=== PATIENT | male | born 1965 | race Caucasian/White ===

== ENCOUNTER 2017-07-18 07:39 | Emergency (ER) | payer SELFPAY ==
[2017-07-18 07:47] VITALS: BMI 29.0
[2017-07-18] MEDS ORDERED: Sodium Chloride 0.9% 500 ML IV STA ×2 (08:03→10:51)
[2017-07-18] MEDS ORDERED: Morphine 4 mg/ml ISec IVP STA (08:03)
--- NOTE | 2017-07-18 08:13 | ED PDOC ---
Arrival/HPI - General Chief Complaint: Trauma Time Seen by Provider: 07/18/17 08:03 Historian: Patient - History of Present Illness Narrative History of Present Illness (Text): 07/18/17 08:00 Henry Pope is a 52 year old male, whose past medical history includes hypertension and diabetes, who presents to the emergency department complaining of left sided mid-back pain radiating to left side of the abdomen s/p mechanical fall. Patient reports last night he had a mechanical fall down the stairs (1flight of stairs tripping over his dog) landing on his left side. He notes being able to get up slowly and ambulate with no problem. Patient decided to take two Aleves, which did not have significant relief. Patient woke up this morning and could barely move without pain. He also states pain is worse with deep breathing. Patient denies chest pain, shortness of breath, dizziness, lightheadedness, or palpitation. Patient did not hit his head. pt denied syncope pre/post fall; Patient denies any loss of consciousness, headache, fever , chills, cough, nausea, vomiting, diarrhea, visual changes, neck pain, dysuria , hematuria, frequency, bowel/bladder incontinence; pt denied numbness/tingling ; Patient denies other bodily pain or injury. Additionally, patient reports having his last Tetanus shot more than 5 years ago. PMD: Dr. Husain 07/18/17 08:52 pt arrived to ED for further eval; pt denied other complaints. Time/Duration: 4-6 hours Symptom Onset: Sudden Symptom Course: Worsening Severity Level: Severe Activities at Onset: Rest, Light Context: Home, Tripped Past Medical History - Provider Review Nursing Documentation Reviewed: Yes - Travel History Have you recently traveled outside [place] w/in the past 3 mons?: No - Past History Past History: No Previous - Infectious Disease Hx of Infectious Diseases: None - Tetanus Immunization Tetanus Immunization: Unknown - Cardiac Hx Cardiac Disorders: Yes Hx Hypertension: Yes - Pulmonary Hx Respiratory Disorders: Yes Hx Asthma: Yes - Neurological Hx Neurological Disorder: No - HEENT Hx HEENT Disorder: No - Renal Hx Renal Disorder: No - Endocrine/Metabolic Hx Endocrine Disorders: Yes Hx Diabetes Mellitus Type 2: Yes - Hematological/Oncological Hx Blood Disorders: No - Integumentary Hx Dermatological Disorder: No - Musculoskeletal/Rheumatological Hx Musculoskeletal Disorders: No Hx Falls: No - Gastrointestinal Hx Gastrointestinal Disorders: Yes Hx Gastroesophageal Reflux: Yes - Genitourinary/Gynecological Hx Genitourinary Disorders: No - Psychiatric Hx Psychophysiologic Disorder: Yes Hx Depression: Yes Hx Substance Use: No - Past Surgical History Past Surgical History: Non-Contributing - Surgical History Hx Appendectomy: Yes - Anesthesia Hx Anesthesia: Yes Hx Anesthesia Reactions: No Hx Malignant Hyperthermia: No - Suicidal Assessment Feels Threatened In Home Enviroment: No Family/Social History - Physician Review Nursing Documentation Reviewed: Yes Family/Social History: Unknown Family HX Smoking Status: Current Some Days Smoker Hx Alcohol Use: Yes Hx Substance Use: No Hx Substance Use Treatment: No Allergies/Home Meds Allergies/Adverse Reactions: Allergies latex Allergy (Verified 03/18/16 09:14) RASH Review of Systems - Review of Systems Constitutional: absent: Fevers Eyes: absent: Vision Changes Respiratory: absent: SOB Cardiovascular: absent: Chest Pain Gastrointestinal: Abdominal Pain (left sided ). absent: Diarrhea, Vomiting Genitourinary Male: absent: Dysuria, Frequency, Hematuria Musculoskeletal: Back Pain (left sided mid back pain ) Neurological: absent: Headache, Dizziness, Focal Weakness Endocrine: absent: Polyuria Hemo/Lymphatic: absent: Easy Bleeding, Easy Bruising Physical Exam Vital Signs Reviewed: Yes Temperature: Afebrile Blood Pressure: Normal Pulse: Regular Respiratory Rate: Normal Appearance: Positive for: Well-Appearing, Non-Toxic, Other (uncomfortable, sitting on his exam bed, intermittently screaming of pain, mild-moderate distress; cooperative, alert/awake) Pain Distress: Mild Mental Status: Positive for: Alert and Oriented X 3 - Systems Exam Head: Present: Atraumatic, Normocephalic Pupils: Present: PERRL, Other (no photophobia, sclera anicteric, no nystagmus, visual field intact b/l) Extroacular Muscles: Present: EOMI Conjunctiva: Present: Normal Ears: Present: Normal Mouth: Present: Moist Mucous Membranes, Other (intact dentitions, no drooling/ stridor, no dysphonia) Pharnyx: Present: Normal Nose (External): Present: Atraumatic Neck: Present: Normal Range of Motion, Trachea Midline, Other (no step off, intact ROM, no midline tenderness). No: MIDLINE TENDERNESS, Paraspinal Tenderness Respiratory/Chest: Present: Clear to Auscultation, Good Air Exchange, Other (+ left lateral/lower chest wall tenderness noted, no crepitus on exam, no rashes/ lesions noted). No: Respiratory Distress, Accessory Muscle Use, Wheezes, Rales , Retracting, Rhonchi Cardiovascular: Present: Regular Rate and Rhythm, Normal S1, S2. No: Murmurs Abdomen: Present: Normal Bowel Sounds, Other (well nourished/obese male, + mild left upper/mid abd tenderness, no organomeagly noted; no masses/rebound/guarding /rigidity; no roa's sign, no mcburney's point tenderness). No: Tenderness, Distention, Peritoneal Signs, Rebound, Guarding Back: Present: Normal Inspection, Midline Tenderness (lower mid-thoracic midline tenderness), Other (no ecchymosis/lesions noted; + lower thoracic/upper lumbar midline tenderness, no step off, no paralumbar tenderness noted on exam) . No: CVA Tenderness, Pain with Leg Raise Upper Extremity: Present: Normal Inspection, Normal ROM, NORMAL PULSES, Neurovascularly Intact, Capillary Refill < 2s. No: Cyanosis, Edema, Tenderness , Swelling, Erythema, Deformity Lower Extremity: Present: Normal Inspection, NORMAL PULSES, Normal ROM, Neurovascularly Intact, Capillary Refill < 2 s, Other (strength 5/5 grossly intact in all limbs, +2/2 reflex b/l). No: Edema, CALF TENDERNESS, Cyanosis, Tenderness, Swelling, Erythema, Deformity Neurological: Present: GCS=15, CN II-XII Intact, Speech Normal Skin: Present: Warm, Dry, Normal Color, Abrasion (2 abrasions noted: 1) 1/3 proximally located on the anterior of left leg; 2) upper 1/3 proximally small abrasions on right lower leg). No: Rashes Lymphatic: Present: Other (no ecchymosis) Psychiatric: Present: Alert, Oriented x 3, Normal Insight, Normal Concentration Medical Decision Making ED Course and Treatment: 07/18/17 Impression: 52 year old male with lower mid thoracic midline tenderness. Patient has 2 abrasions anterior left/right leg. No ecchymosis noted. I have considered all Differential Diagnosis regarding pt's chief medical complaints/clinical findings included but are not limited to: r/o rib fracture vs. pneumothorax vs. abdominal wall contusion vs. spinal fracture. pt unlikely sustained intrabdominal solid organ injury, however will continue to monitor. 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[employer] and doesnt want to stay in the hospital if it was recommended with negative CT results, and pt's remained able to ambulate, pt is currently stable/comfortable, pt can be discharged home with outpt f/u pt is made aware of his medical results/diagnosis pt is encouraged IS use as directed pt is encouraged not to drink alcohol pt will f/u as directed pt will be discharged home 07/18/17 12:05 Re-evaluation Time: 11:35 Reassessment Condition: Improving,but remains with symptoms - Lab Interpretations Lab Results: 07/18/17 07:55 07/18/17 07:55 Lab Results 07/18/17 07:55: Sodium 140, Potassium 4.5, Chloride 102, Carbon Dioxide 21, Anion Gap 21 H, BUN 21, Creatinine 0.9, Est GFR ( Amer) > 60, Est GFR ( Non-Af Amer) > 60, Random Glucose 182 H, Calcium 9.6, Total Bilirubin 0.6, AST 56, ALT 76 H, Alkaline Phosphatase 80, Total Creatine Kinase 789 H, CK-MB (CK-2 ) 9.4 H, CK-MB (CK-2) % 1.2 L, Total Protein 8.8 H, Albumin 5.0 H, Globulin 3.8 , Albumin/Globulin Ratio 1.3, Lipase 97 07/18/17 07:55: WBC 10.8 D, RBC 4.82, Hgb 14.9, Hct 43.8, MCV 90.9, MCH 30.9, MCHC 34.0, RDW 12.8, Plt Count 244, MPV 11.1 H, Gran % 75.0 H, Lymph % (Auto) 17.8 L, [place] % (Auto) 5.4, Eos % (Auto) 1.5, Baso % (Auto) 0.3, Gran # 8.07 H, Lymph # 1.9, [place] # 0.6, Eos # 0.2, Baso # 0.03 I have reviewed the lab results: Yes (elevated CK/LFTs) Interpretation: Abnormal lab values - RAD Interpretation Narrative RAD Interpretations (Text): 07/18/17 10:15 Hip and pelvis impression: no fracture, dislocation, or foreign bodies noted on scan, read by me. Left ribs x-ray impression: left basilar atelectasis. No active disease noted in chest. No pneumothorax. Questionable 9 and 10 rib fracture on displaced and no free air. Read by me. Thoracolumbar spine x-ray impression: concerning findings of T10, T11, T12 compression. Vertebral heigh chnage. Concern for acute compression fracture. Read by me. 07/18/17 10:30 Hip/Pelvis x-ray: Creator : Mary Quinonez MD FINDINGS: BONES: There is a linear lucency in the right femoral head with mild medial angulation. The pelvic ring is intact. Bone alignment and mineralization are normal. JOINTS: Normal. SOFT TISSUES: Normal. OTHER FINDINGS: None. IMPRESSION: Findings are concerning for acute nondisplaced fracture in the right femoral head. No dislocation. 07/18/17 10:35 Left rib x-ray: Creator : Mary Quinonez MD COMPARISON: 05/31/2015. FINDINGS: LEFT RIBS: There is an acute mildly displaced fracture in the left posterior tenth ribs and question of acute nondisplaced fracture in the left posterior 11th rib. LUNGS: The lungs are well inflated. There is linear atelectasis in the left lower lobe. No consolidation. PLEURA: No pneumothorax or pleural fluid. CARDIOVASCULAR: Normal sized heart. No pulmonary vascular congestion. OTHER FINDINGS: None. IMPRESSION: 1. Acute mildly displaced fracture in the left posterior 10th rib and question of acute nondisplaced fracture in the left posterior 11th rib. No pleural effusion or pneumothorax the 07/18/17 10:40 Spine x-ray: Creator : Mary Quinonez MD FINDINGS: BONES: There is normal alignment of the thoracic and lumbar vertebral bodies. There is normal thoracic kyphosis and lumbar lordosis. Bone mineralization is normal. There is question of superior endplate compression deformities in the T11 and T12 vertebral bodies. There is no evidence of retropulsion. DISC SPACES: There is multilevel degenerative disc disease in the lower thoracic spine and at L4-5 and L5-S1. OTHER FINDINGS: There are no pathologic soft tissue calcifications. Both sacroiliac joints are normal. IMPRESSION: Suspect superior endplate compression deformities in the T11 and T12 vertebral bodies. No retropulsion. Radiology Orders: 07/18/17 08:05 HIP MIN 2V W/ PELVIS RT [RAD] Stat RIBS LEFT & PA CHEST [RAD] Stat 07/18/17 08:07 SPINE THORACOLUMBAR MIN 2 VIEW [RAD] Stat 07/18/17 10:15 THORACIC SPINE W/O CONT [CT] Stat 07/18/17 10:16 LUMBAR SPINE W/O CONTRAST [CT] Stat 07/18/17 10:50 PELVIS W/O PO OR IV CONTRAST [CT] Stat CT pelvis: PROCEDURE: CT of the pelvis without contrast. HISTORY: r/o hip fracture COMPARISON: Plain radiographs performed earlier the same day TECHNIQUE: Contiguous axial images of pelvis were obtained. Coronal and sagittal reformats were generated. This CT exam was performed using one or more of the following dose reduction techniques: Automated exposure control, adjustment of the mA and/or kV according to patient size, and/or use of iterative reconstruction technique. Total exam DLP = 1016.56 mGy-cm. FINDINGS: BONES: There is no acute displaced fracture or bone destruction. Bone alignment and mineralization are normal. RIGHT HIP JOINT: There is moderate degenerative osteoarthrosis in the right hip joint with reduced joint space, marginal osteophytes and subarticular cystic changes. The left hip joint space is preserved. SOFT TISSUES: The periarticular soft tissues are normal. There is a small fat containing infraumbilical ventral hernia. Mild sigmoid diverticulosis without CT evidence for acute diverticulitis. IMPRESSION: 1. No acute displaced fracture or dislocation. 2. Moderate degenerative osteoarthrosis in the right hip joint with subarticular cystic changes, reduced joint space and marginal osteophytes. CT L/S: FINDINGS: VERTEBRAE: There is normal alignment of the lumbar vertebral bodies. There is normal lumbar lordosis. There is no acute fracture, spondylolysis or spondylolisthesis. Bone mineralization is normal. DISCS/SPINAL CANAL/NEURAL FORAMINA: There are multilevel Schmorl's nodes in the lower thoracic vertebral bodies. L1-2: No large disc herniation, neural foraminal or spinal canal stenosis. L2-3: Mild posterior disc bulge without neural foraminal or spinal canal stenosis. L3-4: Mild posterior disc bulge and right foraminal disc protrusion without spinal canal stenosis. Mild facet arthropathy contributes to moderate right and mild left neural foraminal stenosis. L4-5: Broad-based central disc protrusion indents the ventral thecal sac with resultant moderate spinal canal stenosis. Also noted is superimposed right foraminal disc protrusion. Mild bilateral facet arthropathy contributes to severe right and moderate left neural foraminal stenosis. L5-S1: Diffuse posterior disc bulge without spinal canal stenosis. Mild bilateral facet arthropathy contributes to [id number] neural foraminal stenosis. PARASPINAL SOFT TISSUES: Unremarkable. OTHER FINDINGS: None. IMPRESSION: 1. No acute fracture, spondylolysis or spondylolisthesis. 2. Multilevel degenerative disc disease, worse at L4-5 with a broad-based central and right foraminal disc protrusions and mild facet arthropathy with resultant moderate spinal canal stenosis, severe right and moderate left neural foraminal stenosis. CT thoracic: PROCEDURE: CT Thoracic Spine without contrast HISTORY: fall, persistent back pain COMPARISON: None. TECHNIQUE: Axial computed tomography images were obtained of the thoracic spine without intravenous contrast. Coronal and sagittal reformatted images were created and reviewed. Radiation dose: Total exam DLP = 1117.79 mGy-cm. This CT exam was performed using one or more of the following dose reduction techniques: Automated exposure control, adjustment of the mA and/or kV according to patient size, and/or use of iterative reconstruction technique. FINDINGS: VERTEBRAE: There is normal alignment of the thoracic vertebral bodies. There is normal thoracic kyphosis. There is no acute fracture or bone destruction. There is no spondylolisthesis. DISCS/SPINAL CANAL/NEURAL FORAMINA: There are multilevel Schmorl's nodes in the lower thoracic vertebral bodies. There is mild multilevel degenerative disc disease without spinal canal stenosis. Evaluation of the discs and spinal cord is limited on noncontrast CT examination. PARASPINAL SOFT TISSUES: Unremarkable. OTHER FINDINGS: Incidental note is made of a solitary gallstone. IMPRESSION: No acute fracture. Cloth Laminating Supervisor: ED Physician, Radiologist - Medication Orders Current Medication Orders: Discontinued Medications Diazepam (Valium) 5 mg PO STAT STA Stop: 07/18/17 08:18 Last Admin: 07/18/17 08:23 Dose: 5 mg Sodium Chloride (Sodium Chloride 0.9%) 500 mls @ 1,000 mls/hr IV .Q30M STA Stop: 07/18/17 08:32 Last Admin: 07/18/17 08:05 Dose: 1,000 mls/hr eMAR Start Stop Document 07/18/17 08:05 TA (Rec: 07/18/17 10:38 TA [id number]) Intravenous Solution Start Date 07/18/17 Start Time 08:05 Sodium Chloride (Sodium Chloride 0.9%) 500 mls @ 999 mls/hr IV .Q31M STA Stop: 07/18/17 11:21 Last Admin: 07/18/17 11:05 Dose: 999 mls/hr eMAR Start Stop Document 07/18/17 11:05 TA (Rec: 07/18/17 11:30 TA [id number]) Intravenous Solution Start Date 07/18/17 Start Time 11:05 Ketorolac Tromethamine (Toradol) 30 mg IVP STAT STA Stop: 07/18/17 08:09 Last Admin: 07/18/17 08:23 Dose: 30 mg MAR Pain Assessment Document 07/18/17 08:23 TA (Rec: 07/18/17 08:23 TA [id number]) Pain Reassessment Is this a pain reassessment? No Sleep Is patient sleeping during reassessment? No Pain Scale Used Pain Scale Used Numeric Location Left, Right or Bilateral Left Pain Location Body Site Generalized Description Description Constant Intensity of Pain at present 10 Acceptable Level of Pain 0 Pain Behavior Moaning IVP Administration Document 07/18/17 08:23 TA (Rec: 07/18/17 08:23 TA [id number]) Charges for Administration # of IVP Administrations 1 Morphine Sulfate (Morphine) 4 mg IVP STAT STA Stop: 07/18/17 08:04 Last Admin: 07/18/17 08:22 Dose: 4 mg MAR Pain Assessment Document 07/18/17 08:22 TA (Rec: 07/18/17 08:23 TA [id number]) Pain Reassessment Is this a pain reassessment? No Sleep Is patient sleeping during reassessment? No Presence of Pain Presence of Pain No Pain Scale Used Pain Scale Used Numeric Location Left, Right or Bilateral Left Pain Location Body Site Generalized Description Description Constant Intensity of Pain at present 10 Acceptable Level of Pain 0 Pain Behavior Moaning IVP Administration Document 07/18/17 08:22 TA (Rec: 07/18/17 08:23 TA [id number]) Charges for Administration # of IVP Administrations 1 Morphine Sulfate (Morphine) 6 mg IVP STAT STA Stop: 07/18/17 10:11 Last Admin: 07/18/17 10:37 Dose: 6 mg MAR Pain Assessment Document 07/18/17 10:37 TA (Rec: 07/18/17 10:38 TA [id number]) Pain Reassessment Is this a pain reassessment? Yes Sleep Is patient sleeping during reassessment? No Presence of Pain Presence of Pain Yes Pain Scale Used Pain Scale Used Numeric Location Left, Right or Bilateral Left Pain Location Body Site Generalized Description Description Constant Intensity of Pain at present 5 Acceptable Level of Pain 0 Pain Behavior Moaning IVP Administration Document 07/18/17 10:37 TA (Rec: 07/18/17 10:38 TA [id number]) Charges for Administration # of IVP Administrations 1 Tetanus/Reduced Diphtheria/Acell Pertussis (Boostrix Vaccine Inj) 0.5 ml IM .ONCE ONE Stop: 07/18/17 08:41 Last Admin: 07/18/17 10:12 Dose: 0.5 ml MAR Immunization Data Document 07/18/17 10:12 TA (Rec: 07/18/17 10:12 TA [id number]) Immunization Data Vaccine Information Sheet Given Yes Immunization Registry Document 07/18/17 10:12 TA (Rec: 07/18/17 10:12 TA [id number]) Immunization Registry Consent Date 07/18/17 - Scribe Statement The provider has reviewed the documentation as recorded by the Nilo Curran Provider Scribe Attestation: All medical record entries made by the Scribe were at my direction and personally dictated by me. I have reviewed the chart and agree that the record accurately reflects my personal performance of the history, physical exam, medical decision making, and the department course for this patient. I have also personally directed, reviewed, and agree with the discharge instructions and disposition. Disposition/Present on Arrival - Present on Arrival Any Indicators Present on Arrival: No History of DVT/PE: No History of Uncontrolled Diabetes: Yes Urinary Catheter: No History of Decub. Ulcer: No History Surgical Site Infection Following: None - Disposition Have Diagnosis and Disposition been Completed?: Yes Diagnosis: Closed rib fracture, Unspecified thoracic, thoracolumbar and lumbosacral intervertebral disc disorder, Back contusion Diagnosis: (Ruled Out): Contusion of thoracic wall Disposition: HOME/ ROUTINE Disposition Time: 11:57 Patient Plan: Discharge Patient Problems: Current Active Problems Problem Status Onset Back contusion Acute Closed rib fracture Acute Unspecified thoracic, thoracolumbar and lumbosacral intervertebral disc disorder Acute Condition: STABLE Discharge Instructions (ExitCare): Rib Fracture (ED), Acute Low Back Pain (ED) , Contusion in Adults (ED), Fall Prevention (ED) Print Language: [place] Additional Instructions: Make sure to see your doctor in 1-2 days DRINK PLENTY OF FLUIDS take your medications as prescribed DONT DRINK ALCOHOL USE THE Incentive spirometer as directed RETURN TO ED IF worse pain, cant breath, persistent vomiting, high fever >101- 102 for hours, altered behavior, unable to urinate, heavy/persistent bleeding, passing out, chest pain, or other medical emergencies Prescriptions: diaZEpam [Valium] 5 mg PO TID #15 tab Ibuprofen [Motrin] 600 mg PO TID #30 tab oxyCODONE/Acetaminophen [Percocet 5/325 mg Tab] 1 tab PO QID #15 tab Referrals: Doroteo Pope MD [Staff Provider] - Follow up with primary PCP,NO [Family Provider] - Follow up with primary Forms: [employer] ([place])
[2017-07-18 08:37] LABS: BASO # 0.03 K/mm3 (0.0-2.0); BASO % 0.3 % (0.0-3.0); EOS # 0.2 (0.0-0.7); EOS % 1.5 % (1.5-5.0); GRAN # 8.07 (1.4-6.5); HEMATOCRIT 43.8 % (42.0-52.0); LYMPH # 1.9 (1.2-3.4); LYMPH % 17.8 % (22.0-35.0); MEAN CELL VOLUME 90.9 fl (80.0-105.0); MEAN CORPUSCULAR HEMOGLOBIN 30.9 pg (25.0-35.0); MEAN PLATELET VOLUME 11.1 fl (7.0-11.0); MONO # 0.6 (0.1-0.6); MONO % 5.4 % (1.0-6.0); RED CELL DISTRIBUTION WIDTH 12.8 % (11.5-14.5); WHITE BLOOD COUNT 10.8 10^3/ul (4.5-11.0)
[2017-07-18] MEDS ORDERED: TDAP Vaccine 0.5 mL Syr IM ONE (08:40)
[2017-07-18 08:57] LABS: ALB/GLOB RATIO 1.3 (1.1-1.8); ALKALINE PHOSPHATASE 80 U/L (38-126); ALT/SGPT 76 U/L (7-56); AST/SGOT 56 U/L (17-59); BILIRUBIN,TOTAL 0.6 mg/dL (0.2-1.3); BLOOD UREA NITROGEN 21 mg/dL (7-21); CALCIUM 9.6 mg/dL (8.4-10.5); CARBON DIOXIDE 21 mmol/L (21-33); CHLORIDE 102 mmol/L (98-107); GFR AFRICAN-AMERICAN > 60; GLUCOSE,RANDOM 182 mg/dL (70-110); LIPASE 97 U/L (23-300); POTASSIUM 4.5 mmol/L (3.6-5.0); SODIUM 140 mmol/L (132-148); TOTAL PROTEIN 8.8 g/dL (5.8-8.3)
[2017-07-18] MEDS ORDERED: Morphine 2 mg/ml ISec IVP STA (10:10)
--- NOTE | 2017-07-18 10:27 | RAD ---
PROCEDURE: Right Hip Radiographs. HISTORY: fell down a fligh of stairs COMPARISON: None. FINDINGS: BONES: There is a linear lucency in the right femoral head with mild medial angulation. The pelvic ring is intact. Bone alignment and mineralization are normal. JOINTS: Normal. SOFT TISSUES: Normal. OTHER FINDINGS: None. IMPRESSION: Findings are concerning for acute nondisplaced fracture in the right femoral head. No dislocation.
--- NOTE | 2017-07-18 10:32 | RAD ---
PROCEDURE: Radiographs of the Chest and Left Ribs. HISTORY: fell down 1 flight of stairs last night COMPARISON: 05/31/2015. TECHNIQUE: Frontal radiograph of the chest and multiple oblique radiographs of the left ribs were obtained. FINDINGS: LEFT RIBS: There is an acute mildly displaced fracture in the left posterior tenth ribs and question of acute nondisplaced fracture in the left posterior 11th rib. LUNGS: The lungs are well inflated. There is linear atelectasis in the left lower lobe. No consolidation. PLEURA: No pneumothorax or pleural fluid. CARDIOVASCULAR: Normal sized heart. No pulmonary vascular congestion. OTHER FINDINGS: None. IMPRESSION: 1. Acute mildly displaced fracture in the left posterior 10th rib and question of acute nondisplaced fracture in the left posterior 11th rib. No pleural effusion or pneumothorax the
--- NOTE | 2017-07-18 10:35 | RAD ---
PROCEDURE: Radiographs of the thoracic and Lumbar Spine. HISTORY: fall COMPARISON: No prior. FINDINGS: BONES: There is normal alignment of the thoracic and lumbar vertebral bodies. There is normal thoracic kyphosis and lumbar lordosis. Bone mineralization is normal. There is question of superior endplate compression deformities in the T11 and T12 vertebral bodies. There is no evidence of retropulsion. DISC SPACES: There is multilevel degenerative disc disease in the lower thoracic spine and at L4-5 and L5-S1. OTHER FINDINGS: There are no pathologic soft tissue calcifications. Both sacroiliac joints are normal. IMPRESSION: Suspect superior endplate compression deformities in the T11 and T12 vertebral bodies. No retropulsion.
--- NOTE | 2017-07-18 11:45 | CT ---
PROCEDURE: CT of the pelvis without contrast. HISTORY: r/o hip fracture COMPARISON: Plain radiographs performed earlier the same day TECHNIQUE: Contiguous axial images of pelvis were obtained. Coronal and sagittal reformats were generated. This CT exam was performed using one or more of the following dose reduction techniques: Automated exposure control, adjustment of the mA and/or kV according to patient size, and/or use of iterative reconstruction technique. Total exam DLP = 1016.56 mGy-cm. FINDINGS: BONES: There is no acute displaced fracture or bone destruction. Bone alignment and mineralization are normal. RIGHT HIP JOINT: There is moderate degenerative osteoarthrosis in the right hip joint with reduced joint space, marginal osteophytes and subarticular cystic changes. The left hip joint space is preserved. SOFT TISSUES: The periarticular soft tissues are normal. There is a small fat containing infraumbilical ventral hernia. Mild sigmoid diverticulosis without CT evidence for acute diverticulitis. IMPRESSION: 1. No acute displaced fracture or dislocation. 2. Moderate degenerative osteoarthrosis in the right hip joint with subarticular cystic changes, reduced joint space and marginal osteophytes.
--- NOTE | 2017-07-18 11:49 | CT ---
PROCEDURE: CT Lumbar Spine without contrast HISTORY: Fall, back pain COMPARISON: None. TECHNIQUE: Axial computed tomography images were obtained of the lumbar spine without the use of intravenous contrast. Coronal and sagittal reformatted images were created and reviewed. Radiation dose: Total exam DLP = 1570.56 mGy-cm. This CT exam was performed using one or more of the following dose reduction techniques: Automated exposure control, adjustment of the mA and/or kV according to patient size, and/or use of iterative reconstruction technique. FINDINGS: VERTEBRAE: There is normal alignment of the lumbar vertebral bodies. There is normal lumbar lordosis. There is no acute fracture, spondylolysis or spondylolisthesis. Bone mineralization is normal. DISCS/SPINAL CANAL/NEURAL FORAMINA: There are multilevel Schmorl's nodes in the lower thoracic vertebral bodies. L1-2: No large disc herniation, neural foraminal or spinal canal stenosis. L2-3: Mild posterior disc bulge without neural foraminal or spinal canal stenosis. L3-4: Mild posterior disc bulge and right foraminal disc protrusion without spinal canal stenosis. Mild facet arthropathy contributes to moderate right and mild left neural foraminal stenosis. L4-5: Broad-based central disc protrusion indents the ventral thecal sac with resultant moderate spinal canal stenosis. Also noted is superimposed right foraminal disc protrusion. Mild bilateral facet arthropathy contributes to severe right and moderate left neural foraminal stenosis. L5-S1: Diffuse posterior disc bulge without spinal canal stenosis. Mild bilateral facet arthropathy contributes to [id number] neural foraminal stenosis. PARASPINAL SOFT TISSUES: Unremarkable. OTHER FINDINGS: None. IMPRESSION: 1. No acute fracture, spondylolysis or spondylolisthesis. 2. Multilevel degenerative disc disease, worse at L4-5 with a broad-based central and right foraminal disc protrusions and mild facet arthropathy with resultant moderate spinal canal stenosis, severe right and moderate left neural foraminal stenosis.
--- NOTE | 2017-07-18 11:53 | CT ---
PROCEDURE: CT Thoracic Spine without contrast HISTORY: fall, persistent back pain COMPARISON: None. TECHNIQUE: Axial computed tomography images were obtained of the thoracic spine without intravenous contrast. Coronal and sagittal reformatted images were created and reviewed. Radiation dose: Total exam DLP = 1117.79 mGy-cm. This CT exam was performed using one or more of the following dose reduction techniques: Automated exposure control, adjustment of the mA and/or kV according to patient size, and/or use of iterative reconstruction technique. FINDINGS: VERTEBRAE: There is normal alignment of the thoracic vertebral bodies. There is normal thoracic kyphosis. There is no acute fracture or bone destruction. There is no spondylolisthesis. DISCS/SPINAL CANAL/NEURAL FORAMINA: There are multilevel Schmorl's nodes in the lower thoracic vertebral bodies. There is mild multilevel degenerative disc disease without spinal canal stenosis. Evaluation of the discs and spinal cord is limited on noncontrast CT examination. PARASPINAL SOFT TISSUES: Unremarkable. OTHER FINDINGS: Incidental note is made of a solitary gallstone. IMPRESSION: No acute fracture.
[2017-07-18 12:35] VITALS: BP 136/84; PULSE 88; RESP 16; TEMP 98.9; O2SAT 99
== END 2017-07-18 12:00 | disposition home or self-care (01) ==
LOC: ED 07:39
DX: S22.32XA Fracture of one rib, left side, initial encounter for closed fracture (principal); S30.0XXA Contusion of lower back and pelvis, initial encounter; W10.9XXA Fall (on) (from) unspecified stairs and steps, initial encounter; Y92.009 Unspecified place in unspecified non-institutional (private) residence as the place of occurrence of the external cause; M51.9 Unspecified thoracic, thoracolumbar and lumbosacral intervertebral disc disorder; I10 Essential (primary) hypertension
CPT/HCPCS: 71101; 72082; 72128; 72131; 72192; 73502; 80053; 82550; 82553; 83690; 85025; 90471; 90715; 96374; 96375; 96376; 99285; J1885; J2270; J7040

== ENCOUNTER 2017-08-07 13:58 | Emergency (ER) | payer OTHER, SELFPAY ==
[2017-08-07 13:58] VITALS: BMI 29.0
[2017-08-07 14:09] VITALS: TEMP 97.6; O2SAT 100
--- NOTE | 2017-08-07 14:41 | ED PDOC ---
Arrival/HPI - General Chief Complaint: Upper Extremity Problem/Injury Time Seen by Provider: 08/07/17 14:25 Historian: Patient - History of Present Illness Narrative History of Present Illness (Text): 08/07/17 14:38 52yo male with history of recent trauma present with complaint of left shoulder pain x days. Patient reports trauma on July 18. States he fell down 19 stairs and was seen here s/p. He had rib fracture and back pain then. Started having left shoulder pain days after. States pain is with abduction of left arm. Pain is temporary relieved with Ibuprofen. He denies focal weakness, chest pain, SOB, any other complaint. Past Medical History - Provider Review Nursing Documentation Reviewed: Yes - Past History Past History: No Previous - Infectious Disease Hx of Infectious Diseases: None - Tetanus Immunization Tetanus Immunization: Unknown - Cardiac Hx Cardiac Disorders: Yes Hx Hypertension: Yes - Pulmonary Hx Respiratory Disorders: Yes Hx Asthma: Yes - Neurological Hx Neurological Disorder: No - HEENT Hx HEENT Disorder: No - Renal Hx Renal Disorder: No - Endocrine/Metabolic Hx Endocrine Disorders: Yes Hx Diabetes Mellitus Type 2: Yes - Hematological/Oncological Hx Blood Disorders: No - Integumentary Hx Dermatological Disorder: No - Musculoskeletal/Rheumatological Hx Musculoskeletal Disorders: No Hx Falls: No - Gastrointestinal Hx Gastrointestinal Disorders: Yes Hx Gastroesophageal Reflux: Yes - Genitourinary/Gynecological Hx Genitourinary Disorders: No - Psychiatric Hx Psychophysiologic Disorder: Yes Hx Depression: Yes Hx Substance Use: No - Past Surgical History Past Surgical History: Non-Contributing - Surgical History Hx Appendectomy: Yes - Anesthesia Hx Anesthesia: Yes Hx Anesthesia Reactions: No Hx Malignant Hyperthermia: No - Suicidal Assessment Feels Threatened In Home Enviroment: No Family/Social History - Physician Review Nursing Documentation Reviewed: Yes Family/Social History: Unknown Family HX Smoking Status: Current Some Days Smoker Hx Alcohol Use: Yes Hx Substance Use: No Hx Substance Use Treatment: No Allergies/Home Meds Allergies/Adverse Reactions: Allergies latex Allergy (Verified 08/07/17 14:08) RASH Review of Systems - Physician Review All systems were reviewed & negative as marked: Yes - Review of Systems Constitutional: Normal Eyes: Normal ENT: Normal Respiratory: Normal Cardiovascular: Normal Gastrointestinal: Normal Genitourinary Male: Normal Musculoskeletal: Arthralgias (Left shoulder pain) Skin: Normal Neurological: Normal Endocrine: Normal Hemo/Lymphatic: Normal Psychiatric: Normal Physical Exam Vital Signs Reviewed: Yes Vital Signs Temp Pulse Resp BP Pulse Ox 08/07/17 14:09 97.6 F 100 H 17 190/100 H 100 Temperature: Afebrile Blood Pressure: Hypertensive Pulse: Regular Respiratory Rate: Normal Appearance: Positive for: Well-Appearing, Non-Toxic, Comfortable Pain Distress: None Mental Status: Positive for: Alert and Oriented X 3 - Systems Exam Head: Present: Atraumatic, Normocephalic Pupils: Present: PERRL Extroacular Muscles: Present: EOMI Conjunctiva: Present: Normal Mouth: Present: Moist Mucous Membranes Neck: Present: Normal Range of Motion Respiratory/Chest: Present: Clear to Auscultation, Good Air Exchange. No: Respiratory Distress, Accessory Muscle Use Cardiovascular: Present: Regular Rate and Rhythm, Normal S1, S2. No: Murmurs Abdomen: Present: Normal Bowel Sounds. No: Tenderness, Distention, Peritoneal Signs Back: Present: Normal Inspection Upper Extremity: Present: Tenderness (Left AC shoulder joint), Neurovascularly Intact. No: Cyanosis, Edema, Normal ROM (Limited on abduction of left arm up to 90degree secondary to pain), Swelling Lower Extremity: Present: Normal Inspection. No: Edema Neurological: Present: GCS=15, CN II-XII Intact, Speech Normal Skin: Present: Warm, Dry, Normal Color. No: Rashes Psychiatric: Present: Alert, Oriented x 3, Normal Insight, Normal Concentration Medical Decision Making ED Course and Treatment: 08/07/17 15:47 Pt in ED for stated history. Left shoulder xray - Negative Result was DW the pt Rx of Naprosyn given. Referred to his PMd/ortho - RAD Interpretation Radiology Orders: 08/07/17 14:35 SHOULDER LEFT [RAD] Stat - Medication Orders Current Medication Orders: Discontinued Medications Ketorolac Tromethamine (Toradol) 60 mg IM STAT STA Stop: 08/07/17 14:36 Last Admin: 08/07/17 14:52 Dose: 60 mg NEPTALI Pain Assessment Document 08/07/17 14:52 GMD (Rec: 08/07/17 14:52 GMD [facility] [place] Pain Reassessment Is this a pain reassessment? No Sleep Is patient sleeping during reassessment? No Presence of Pain Presence of Pain Yes Location Left, Right or Bilateral Left Pain Location Body Site Shoulder IM Administration Charges Document 08/07/17 14:52 GMD (Rec: 08/07/17 14:52 GMD [facility] [place] Injection Site MAR Injection Site Right Deltoid Charges for Administration # of IM Administrations 1 Disposition/Present on Arrival - Present on Arrival Any Indicators Present on Arrival: No History of DVT/PE: No History of Uncontrolled Diabetes: Yes Urinary Catheter: No History of Decub. Ulcer: No History Surgical Site Infection Following: None - Disposition Have Diagnosis and Disposition been Completed?: Yes Diagnosis: Shoulder pain Disposition: HOME/ ROUTINE Disposition Time: 15:50 Patient Plan: Discharge Condition: STABLE Discharge Instructions (ExitCare): Shoulder Sprain (ED) Additional Instructions: Follow up with your doctor/orthopedist Return to ED for any new symptoms Prescriptions: Naproxen [Naprosyn] 500 mg PO BID #20 tab Referrals: Panda Del Valle, [Primary Care Provider] - Follow up with primary [facility] [place] [Outside] - Follow up with primary aMggie Ramos MD [Staff Provider] - Follow up with primary Forms: [employer] (Macanese)
--- NOTE | 2017-08-07 15:35 | RAD ---
PROCEDURE: Radiographs of the Left Shoulder HISTORY: shoulder pain s/p trauma COMPARISON: No prior. FINDINGS: BONES: Normal. No fracture. JOINTS: Normal. Glenohumeral and acromioclavicular joints preserved. No osteoarthritis. SOFT TISSUES: Normal. OTHER FINDINGS: None. IMPRESSION: Normal radiographs of the left shoulder.
[2017-08-07 16:01] VITALS: BP 170/98; PULSE 98; RESP 18
== END 2017-08-07 16:02 | disposition home or self-care (01) ==
LOC: ED 13:58
DX: M25.512 Pain in left shoulder (principal)
CPT/HCPCS: 73030; 96372; 99284; J1885

== ENCOUNTER 2017-08-13 10:33 | Emergency (ER) | payer OTHER ==
[2017-08-13 10:58] VITALS: BMI 41.1
[2017-08-13 11:01] VITALS: RESP 18; TEMP 98.5
--- NOTE | 2017-08-13 11:20 | ED PDOC ---
Arrival/HPI - General Chief Complaint: Rib Injury Time Seen by Provider: 08/13/17 10:58 - History of Present Illness Narrative History of Present Illness (Text): you were treated in the ED today for known left 10, 11th rib fractures 07/18/17 , and 08/07/17 left shoulder xray without fracture and today while at work twisted with recurrent left rib pain but otherwise without any fall/trauma/ injury/neck pain/loss of counsiousness/nausea/vomiting/headache/dizziness/ difficulty breathing/chest pain with exception of left rib pain/abdomen pain/ numbness/tingling/loss of limb function/pain with urination. 08/13/17 11:17 Time/Duration: 1-3 hours Symptom Onset: Gradual Symptom Course: Improving Severity Level: 3 Activities at Onset: Light Context: Exertion Past Medical History - Provider Review Nursing Documentation Reviewed: Yes - Travel History Have you recently traveled outside [place] w/in the past 3 mons?: No - Past History Past History: No Previous - Infectious Disease Hx of Infectious Diseases: None - Tetanus Immunization Tetanus Immunization: Unknown - Cardiac Hx Cardiac Disorders: Yes Hx Hypertension: Yes - Pulmonary Hx Respiratory Disorders: Yes Hx Asthma: Yes - Neurological Hx Neurological Disorder: No - HEENT Hx HEENT Disorder: No - Renal Hx Renal Disorder: No - Endocrine/Metabolic Hx Endocrine Disorders: Yes Hx Diabetes Mellitus Type 2: Yes - Hematological/Oncological Hx Blood Disorders: No - Integumentary Hx Dermatological Disorder: No - Musculoskeletal/Rheumatological Hx Musculoskeletal Disorders: No Hx Falls: No - Gastrointestinal Hx Gastrointestinal Disorders: Yes Hx Gastroesophageal Reflux: Yes - Genitourinary/Gynecological Hx Genitourinary Disorders: No - Psychiatric Hx Psychophysiologic Disorder: Yes Hx Depression: Yes Hx Substance Use: No - Past Surgical History Past Surgical History: Non-Contributing - Surgical History Hx Appendectomy: Yes - Anesthesia Hx Anesthesia: Yes Hx Anesthesia Reactions: No Hx Malignant Hyperthermia: No - Suicidal Assessment Feels Threatened In Home Enviroment: No Family/Social History - Physician Review Nursing Documentation Reviewed: Yes Family/Social History: No Known Family HX Smoking Status: Current Some Days Smoker Hx Alcohol Use: Yes Hx Substance Use: No Hx Substance Use Treatment: No Allergies/Home Meds Allergies/Adverse Reactions: Allergies latex Allergy (Verified 08/07/17 14:08) RASH Review of Systems - Review of Systems Constitutional: Normal Eyes: Normal ENT: Normal Respiratory: Normal Cardiovascular: Normal Gastrointestinal: Normal Genitourinary Male: Normal Musculoskeletal: Other (left rib pain) Skin: Normal Neurological: Normal Endocrine: Normal Hemo/Lymphatic: Normal Psychiatric: Normal Physical Exam Vital Signs Reviewed: Yes Vital Signs Temp Pulse Resp BP Pulse Ox 08/13/17 11:01 98.5 F 103 H 18 140/95 H 97 Temperature: Afebrile Blood Pressure: Hypertensive Pulse: Tachycardic Respiratory Rate: Normal Appearance: Positive for: Well-Appearing Pain Distress: Mild Mental Status: Positive for: Alert and Oriented X 3 - Systems Exam Head: Present: Atraumatic, Normocephalic Pupils: Present: PERRL Extroacular Muscles: Present: EOMI Conjunctiva: Present: Normal Ears: Present: Normal Mouth: Present: Moist Mucous Membranes Pharnyx: Present: Normal Nose (External): Present: Atraumatic Nose (Internal): Present: Normal Inspection Neck: Present: Normal Range of Motion, Other (no c-t-l spinal or paraspinal tenderness) Respiratory/Chest: Present: Clear to Auscultation Cardiovascular: Present: Regular Rate and Rhythm Abdomen: Present: Tenderness, Distention, Normal Bowel Sounds, Peritoneal Signs , Rebound, Guarding, McBurney's Point Tender, Rovsing's Sign Present, Hernias, Feeding Tubes, Ostomy Tubes, Mass/Organomegaly, Scars, Other Back: Present: Normal Inspection Upper Extremity: Present: Normal Inspection Lower Extremity: Present: Normal Inspection Neurological: Present: GCS=15, CN II-XII Intact, Speech Normal, Motor Func Grossly Intact Skin: Present: Warm, Normal Color Psychiatric: Present: Alert, Oriented x 3, Normal Insight, Normal Concentration Medical Decision Making ED Course and Treatment: 08/13/2017 12:25 Ribs X-Ray IMPRESSION: Displaced fractures are seen of the left 5h 6th and 7th ribs. There is no evidence of pneumothorax. Dictator: Santino Randolph MD - Lab Interpretations Narrative Lab Interpretation (Text): you were treated in the ED today for known left 10, 11th rib fractures 07/18/17 , and 08/07/17 left shoulder xray without fracture and today while at work twisted with recurrent left rib pain but otherwise without any fall/trauma/ injury/neck pain/loss of counsiousness/nausea/vomiting/headache/dizziness/ difficulty breathing/chest pain with exception of left rib pain/abdomen pain/ numbness/tingling/loss of limb function/pain with urination. You were otherwise breathing easily, smiling and laughing, good strength/sensation, alert/oriented , walking easily, clear lungs, no abdomen tenderness, mild left rib discomfort, no spinal tenderness, no fever temp 98.5, stable heart rate ____, stable breathing rate 18, excellent oxygen level 95% room air, elevated blood pressure 97 which we recommend repeat in 2-3 days primary care office to determine further treatment, radiology rib series left rib fractures 5, 6, 7 without air in chest cavity and observation done in the ED with improvement, you didn't want any pain medication at this time, counselled to rest and thus discharged home. 1. Recommend tylenol as directed for mild pain, motrin as directed for moderate pain. Recommend percocet as directed for pain control breakthrough. 2. Recommend heating pad to left rib area. recommend use of incentive spirometry 5 times per hour for lung exercises. 3. Recommend follow-up primary care 2-3 days to review symptoms, thoracic surgery referral. 4. If any worsening pain, fever, chills, nausea, vomiting, difficulty breathing, numbness, loss of limb function , pain with urination or any medical condition then return to the ED. 08/13/17 11:23 08/13/17 13:02 - RAD Interpretation Radiology Orders: 08/13/17 11:15 RIBS LEFT & PA CHEST [RAD] Stat Interlacer: Radiologist (left rib fx 5, 6, 7. no ptx.) Disposition/Present on Arrival - Present on Arrival Any Indicators Present on Arrival: No History of DVT/PE: No History of Uncontrolled Diabetes: Yes Urinary Catheter: No History of Decub. Ulcer: No History Surgical Site Infection Following: None - Disposition Have Diagnosis and Disposition been Completed?: Yes Diagnosis: Rib fractures Disposition: HOME/ ROUTINE Disposition Time: 13:04 Patient Plan: Discharge Patient Problems: Current Active Problems Problem Status Onset Rib fractures Acute Condition: IMPROVED Additional Instructions: you were treated in the ED today for known left 10, 11th rib fractures 07/18/17 , and 08/07/17 left shoulder xray without fracture and today while at work twisted with recurrent left rib pain but otherwise without any fall/trauma/ injury/neck pain/loss of counsiousness/nausea/vomiting/headache/dizziness/ difficulty breathing/chest pain with exception of left rib pain/abdomen pain/ numbness/tingling/loss of limb function/pain with urination. You were otherwise breathing easily, smiling and laughing, good strength/sensation, alert/oriented , walking easily, clear lungs, no abdomen tenderness, mild left rib discomfort, no spinal tenderness, no fever temp 98.5, stable heart rate ____, stable breathing rate 18, excellent oxygen level 95% room air, elevated blood pressure 97 which we recommend repeat in 2-3 days primary care office to determine further treatment, radiology rib series left rib fractures 5, 6, 7 without air in chest cavity and observation done in the ED with improvement, you didn't want any pain medication at this time, counselled to rest and thus discharged home. 1. Recommend tylenol as directed for mild pain, motrin as directed for moderate pain. Recommend percocet as directed for pain control breakthrough. dont work/drive/drink alcohol when using. 2. Recommend heating pad to left rib area. recommend use of incentive spirometry 5 times per hour for lung exercises. 3. Recommend follow-up primary care 2-3 days to review symptoms, thoracic surgery referral. 4. If any worsening pain, fever, chills, nausea, vomiting, difficulty breathing, numbness, loss of limb function, pain with urination or any medical condition then return to the ED. Prescriptions: oxyCODONE/Acetaminophen 1/2TAB [Percocet 5-325 mg HALF TAB] 0.5 ea PO Q6 PRN 3 Days #10 tab PRN Reason: breakthrough pain Referrals: Joyce Husain APN-C [Primary Care Provider] - Follow up with primary Forms: [employer] (Japanese), WORK NOTE
--- NOTE | 2017-08-13 12:27 | RAD ---
PROCEDURE: Radiographs of the Chest and Left Ribs. HISTORY: 52yoM, who states recurrent rib left rib pain. COMPARISON: None available. TECHNIQUE: Frontal radiograph of the chest and multiple oblique radiographs of the left ribs were obtained. FINDINGS: LEFT RIBS: Displaced fractures are seen of the left 5th 6th and 7th ribs. There is no evidence of pneumothorax LUNGS: Clear. PLEURA: No pneumothorax or pleural fluid. CARDIOVASCULAR: Normal sized heart. No pulmonary vascular congestion. OTHER FINDINGS: None. IMPRESSION: Displaced fractures are seen of the left 5th 6th and 7th ribs. There is no evidence of pneumothorax
[2017-08-13 13:12] VITALS: BP 150/113; PULSE 98; O2SAT 98
== END 2017-08-13 13:53 | disposition home or self-care (01) ==
LOC: ED 10:33
DX: S22.42XA Multiple fractures of ribs, left side, initial encounter for closed fracture (principal); I10 Essential (primary) hypertension; E11.9 Type 2 diabetes mellitus without complications

== ENCOUNTER 2017-08-17 07:03 | Emergency (ER) | payer OTHER ==
[2017-08-17 07:36] VITALS: BMI 40.7
[2017-08-17 07:37] VITALS: BP 175/101; PULSE 97; RESP 20; TEMP 99.4; O2SAT 99
--- NOTE | 2017-08-17 08:05 | ED PDOC ---
Arrival/HPI - General Chief Complaint: Cough, Cold, Congestion Time Seen by Provider: 08/17/17 07:57 Historian: Patient - History of Present Illness Time/Duration: Other (2 days) Symptom Onset: Gradual Symptom Course: Worsening Severity Level: Moderate Activities at Onset: Rest Associated Symptoms (Text): 08/17/17 08:02 Patient complains of a 2 day history of a nonproductive cough along with URI symptoms. No dyspnea. No chest pain. No fever or chills. He has not taken his blood pressure medication. Past Medical History - Past History Past History: No Previous - Infectious Disease Hx of Infectious Diseases: None - Tetanus Immunization Tetanus Immunization: Unknown - Cardiac Hx Cardiac Disorders: Yes Hx Hypertension: Yes - Pulmonary Hx Respiratory Disorders: Yes Hx Asthma: Yes - Neurological Hx Neurological Disorder: No - HEENT Hx HEENT Disorder: No - Renal Hx Renal Disorder: No - Endocrine/Metabolic Hx Endocrine Disorders: Yes Hx Diabetes Mellitus Type 2: Yes - Hematological/Oncological Hx Blood Disorders: No - Integumentary Hx Dermatological Disorder: No - Musculoskeletal/Rheumatological Hx Musculoskeletal Disorders: No Hx Falls: No - Gastrointestinal Hx Gastrointestinal Disorders: Yes Hx Gastroesophageal Reflux: Yes - Genitourinary/Gynecological Hx Genitourinary Disorders: No - Psychiatric Hx Psychophysiologic Disorder: Yes Hx Depression: Yes Hx Substance Use: No - Past Surgical History Past Surgical History: Non-Contributing - Surgical History Hx Appendectomy: Yes - Anesthesia Hx Anesthesia: Yes Hx Anesthesia Reactions: No Hx Malignant Hyperthermia: No - Suicidal Assessment Feels Threatened In Home Enviroment: No Family/Social History - Physician Review Nursing Documentation Reviewed: Yes Family/Social History: Unknown Family HX Smoking Status: Current Some Days Smoker Hx Alcohol Use: Yes Hx Substance Use: No Hx Substance Use Treatment: No Allergies/Home Meds Allergies/Adverse Reactions: Allergies latex Allergy (Verified 08/13/17 14:17) RASH Review of Systems - Physician Review All systems were reviewed & negative as marked: Yes - Review of Systems Constitutional: Fatigue. absent: Fevers Respiratory: Cough. absent: SOB, Sputum, Wheezing Cardiovascular: absent: Chest Pain Gastrointestinal: absent: Abdominal Pain, Nausea, Vomiting Physical Exam Vital Signs Temp Pulse Resp BP Pulse Ox 08/17/17 07:03 99.4 F 97 H 20 175/101 H 99 Temperature: Afebrile Blood Pressure: Hypertensive Pulse: Regular Respiratory Rate: Normal Appearance: Positive for: Well-Appearing, Non-Toxic, Comfortable Pain Distress: None Mental Status: Positive for: Alert and Oriented X 3 - Systems Exam Head: Present: Atraumatic, Normocephalic Pupils: Present: PERRL Extroacular Muscles: Present: EOMI Conjunctiva: Present: Normal Ears: Present: NORMAL TM, Normal Canal. No: Erythema Mouth: Present: Moist Mucous Membranes Pharnyx: No: ERYTHEMA, EXUDATE, TONSILS ENLARGED Neck: Present: Normal Range of Motion Respiratory/Chest: Present: Clear to Auscultation, Good Air Exchange, Decreased Breath Sounds. No: Respiratory Distress, Accessory Muscle Use Cardiovascular: Present: Regular Rate and Rhythm, Normal S1, S2. No: Murmurs Skin: Present: Warm, Dry, Normal Color. No: Rashes Medical Decision Making ED Course and Treatment: 08/17/17 08:03 No rales or wheezing. Pulse oximetry is 99 on room air. Instructed to take his blood pressure medication. Follow-up with PMD. Follow up in ER as needed. Disposition/Present on Arrival - Present on Arrival Any Indicators Present on Arrival: No History of DVT/PE: No History of Uncontrolled Diabetes: Yes Urinary Catheter: No History of Decub. Ulcer: No History Surgical Site Infection Following: None - Disposition Have Diagnosis and Disposition been Completed?: Yes Diagnosis: Bronchitis, Upper respiratory infection Disposition: HOME/ ROUTINE Disposition Time: 08:04 Patient Plan: Discharge Condition: GOOD Discharge Instructions (ExitCare): Acute Bronchitis (ED), Upper Respiratory Infection (ED) Additional Instructions: Symptomatic treatment. Tylenol or Advil as directed on bottle as needed. Follow- up with PMD. Follow up in ER as needed. Prescriptions: Benzonatate [Tessalon Perles] 100 mg PO Q8 #30 sgl Azithromycin [Zithromax] 250 mg PO DAILY #6 tab
== END 2017-08-17 08:24 | disposition home or self-care (01) ==
LOC: ED 07:03
DX: J40 Bronchitis, not specified as acute or chronic (principal); J06.9 Acute upper respiratory infection, unspecified; E11.9 Type 2 diabetes mellitus without complications; I10 Essential (primary) hypertension

== ENCOUNTER 2018-10-07 07:38 | Emergency (ER) | payer OTHER, SELFPAY ==
[2018-10-07 07:48] VITALS: BMI 34.3
[2018-10-07 08:05] VITALS: RESP 18
[2018-10-07] MEDS ORDERED: Lidocaine 1% Inj (20ml) SC STA (08:46)
[2018-10-07] MEDS ORDERED: Tmp-Smz 800 mg-160 mg DS Tab PO STA (08:46)
--- NOTE | 2018-10-07 08:46 | ED PDOC ---
Arrival/HPI - General Chief Complaint: ENT Problem Time Seen by Provider: 10/07/18 07:45 Historian: Patient - History of Present Illness Narrative History of Present Illness (Text): 10/07/18 08:42 A 53 year old male presents to the emergency department with a complaint of pain and swelling on the right ear. Patient reports tenderness and swelling to the ear for 1 week. He notes that he has not seen his PMD, but went to the artistic associate who placed the piercing to remove the earring. The patient reports puncturing the ear and puss/ blood draining from the site. He states that he has never had problems with earrings in the past. Patient has been taking 500 mg of Cephalexin for the past 3 days. Patient also notes mild left sided back pain when he coughs. The patient denies fevers, chills, headache, dizziness, chest pain, shortness of breath, dyspnea on exertion, abdominal pain, nausea, vomiting, diarrhea, neck pain, urinary/bowel changes, or any other complaint. Time/Duration: 1 week Symptom Onset: Gradual Symptom Course: Unchanged Activities at Onset: Rest, Light Context: Home Past Medical History - Provider Review Nursing Documentation Reviewed: Yes - Past History Past History: No Previous - Infectious Disease Hx of Infectious Diseases: None - Tetanus Immunization Tetanus Immunization: Unknown - Cardiac Hx Cardiac Disorders: Yes Hx Hypertension: Yes - Pulmonary Hx Respiratory Disorders: Yes Hx Asthma: Yes - Neurological Hx Neurological Disorder: No - HEENT Hx HEENT Disorder: No - Renal Hx Renal Disorder: No - Endocrine/Metabolic Hx Endocrine Disorders: Yes Hx Diabetes Mellitus Type 2: Yes - Hematological/Oncological Hx Blood Disorders: No - Integumentary Hx Dermatological Disorder: No - Musculoskeletal/Rheumatological Hx Musculoskeletal Disorders: No Hx Falls: No - Gastrointestinal Hx Gastrointestinal Disorders: Yes Hx Gastroesophageal Reflux: Yes - Genitourinary/Gynecological Hx Genitourinary Disorders: No - Psychiatric Hx Psychophysiologic Disorder: Yes Hx Depression: Yes Hx Substance Use: No - Past Surgical History Past Surgical History: Non-Contributing - Surgical History Hx Appendectomy: Yes - Anesthesia Hx Anesthesia: Yes Hx Anesthesia Reactions: No Hx Malignant Hyperthermia: No - Suicidal Assessment Feels Threatened In Home Enviroment: No Family/Social History - Physician Review Nursing Documentation Reviewed: Yes Family/Social History: No Known Family HX Smoking Status: Current Some Days Smoker Hx Alcohol Use: Yes Hx Substance Use: No Hx Substance Use Treatment: No Allergies/Home Meds Allergies/Adverse Reactions: Allergies latex Allergy (Verified 08/13/17 14:17) RASH Review of Systems - Physician Review All systems were reviewed & negative as marked: Yes - Review of Systems Constitutional: absent: Fevers Respiratory: Cough. absent: SOB Cardiovascular: absent: Chest Pain, STILL Gastrointestinal: absent: Abdominal Pain, Stool Changes, Diarrhea, Nausea, Vomiting Genitourinary Male: absent: Urinary Output Changes Musculoskeletal: Back Pain. absent: Neck Pain Skin: Abscess (Right ear) Neurological: absent: Headache, Dizziness Physical Exam Vital Signs Reviewed: Yes Vital Signs Temp Pulse Resp BP Pulse Ox 10/07/18 07:39 98.2 F 89 18 148/94 H 99 Temperature: Afebrile Blood Pressure: Hypertensive Pulse: Regular Respiratory Rate: Normal Appearance: Positive for: Well-Appearing, Non-Toxic, Comfortable Pain Distress: None Mental Status: Positive for: Alert and Oriented X 3 Finger Stick Blood Glucose: 346 - Systems Exam Head: Present: Atraumatic, Normocephalic Pupils: Present: PERRL Extroacular Muscles: Present: EOMI Conjunctiva: Present: Normal Ears: Present: Other (Right ear, red, swollen. No fluctuance. Some earrings in place with no puss around earrngs. ) Mouth: Present: Moist Mucous Membranes Neck: Present: Normal Range of Motion, Lymphadenopathy (right lymphadenopathy.) Respiratory/Chest: Present: Clear to Auscultation, Good Air Exchange. No: Respiratory Distress, Accessory Muscle Use Cardiovascular: Present: Regular Rate and Rhythm, Normal S1, S2. No: Murmurs Abdomen: No: Tenderness, Distention, Peritoneal Signs Back: Present: Normal Inspection (Non tender) Upper Extremity: Present: Normal Inspection. No: Cyanosis, Edema Lower Extremity: Present: Normal Inspection. No: Edema Neurological: Present: GCS=15, CN II-XII Intact, Speech Normal Skin: Present: Warm, Dry, Normal Color. No: Rashes Psychiatric: Present: Alert, Oriented x 3, Normal Insight, Normal Concentration Medical Decision Making ED Course and Treatment: 10/07/18 08:49 Impression: A 53 year old male presents to the emergency department with a complaint of redness and swelling to the right ear. Differential Diagnosis included but are not limited to: Right Ear Lob Abscess Plan: -- Keflex, Motrin, Lidocaine, and Bactrim -- Ultrasound placed to right earlobe in a sterile fashion with a small pocket of fluid collection noted -- Reassess and disposition Prior Visits: Notes and results from previous visits were reviewed. Progress Notes: 10/07/18 09:57: Suggested to patient that we could remove the earrings from ear, patient declined and understands risks of further infections/ complications. Procedure: Incision & Drainage Performed by [facility] Indication: Abscess Location: Right external auricle Preparation: To confirm that we incised on the correct abscess location, bedside sonagram was used. Verbal consent was obtained from patient. Patient declined removal of other earrings. The area was prepped and draped in the usual sterile fashion and was cleansed. Local infiltration of Lidocaine 1% 0.25 cc was used for anesthesia and injected at the site of incision. Abscess already draining. Procedure: The most fluctuate portion of the abscess was incised with a #11 sc alpel. Incised a 0.2 cm incision. Approximately 0.25 mL of purulent abscess drainage along with blood was obtained. A dressing was applied by the RN. Post-Procedure: The patient tolerated the procedure well, and there were no complications during procedure. No cartilege involvement. Very superficial. Cultured: No 10/07/18 10:07: On re-evaluation, patient is in no acute distress. I have discussed the results and plan with the patient, who expresses understanding. Patient in agreement with plan to be discharged home. Patient is stable for discharge. Patient was instructed to return to the ED if redness and swellen worsens, fever or any other concern. He was advised to make sure to take antibiotics as suggested and to return to the ED in 3 days for a wound check. - Scribe Statement The provider has reviewed the documentation as recorded by the Maryibe Tess Jaramillo Provider Scribe Attestation: All medical record entries made by the Scribe were at my direction and personally dictated by me. I have reviewed the chart and agree that the record accurately reflects my personal performance of the history, physical exam, medical decision making, and the department course for this patient. I have also personally directed, reviewed, and agree with the discharge instructions and disposition. Disposition/Present on Arrival - Present on Arrival Any Indicators Present on Arrival: Yes History of DVT/PE: No History of Uncontrolled Diabetes: Yes Urinary Catheter: No History of Decub. Ulcer: No History Surgical Site Infection Following: None - Disposition Have Diagnosis and Disposition been Completed?: Yes Diagnosis: Abscess, earlobe Disposition: HOME/ ROUTINE Disposition Time: 10:08 Patient Plan: Discharge Patient Problems: Current Active Problems Problem Status Onset Abscess, earlobe Acute Condition: IMPROVED Discharge Instructions (ExitCare): Outer Ear Infection Additional Instructions: DARIUS RENDON JR, thank you for letting us take care of you today. Your provider was Darrell Dewey DO and you were treated for Ear Lob Abscess. The emergency medical care you received today was directed at your acute symptoms. If you were prescribed any medication, please fill it and take as directed. It may take several days for your symptoms to resolve. Return to the Emergency Department if your symptoms worsen, do not improve, or if you have any other problems. Return to the ED for wound check in 3 days. Please contact your doctor or call one of the physicians/clinics you have been referred to that are listed on the Patient Visit Information form that is included in your discharge packet. Bring any paperwork you were given at discharge with you along with any medications you are taking to your follow up visit. Our treatment cannot replace ongoing medical care by a primary care provider outside of the emergency department. Thank you for allowing the [facility] team to be part of your care today. If you had an X-Ray or CT scan: A Radiologist will review the ED reading if any change in treatment is needed we will contact you. If you had a blood, urine, or wound culture: It will take several days for the results, if any change in treatment is needed we will contact you. If you had an STI test: It will take 48 hours for the results. Please call after 1 week if you have not heard back. Prescriptions: Cephalexin [cephalexin] 500 mg PO Q6 #40 cap Sulfamethoxazole/Trimethoprim [Bactrim DS 800 mg-160 mg] 1 tab PO Q12 #20 tab Referrals: [facility] Del Valle, [Non-Staff] - Follow up with primary Forms: [employer] (Polish), WORK NOTE
[2018-10-07 10:20] VITALS: BP 141/82; PULSE 75; TEMP 97.8; O2SAT 98
== END 2018-10-07 10:21 | disposition home or self-care (01) ==
LOC: ED 07:38
DX: H60.01 Abscess of right external ear (principal); E11.9 Type 2 diabetes mellitus without complications